=== PATIENT | male | born 1950 | race Caucasian/White ===

== ENCOUNTER 2016-11-04 19:57 | Emergency (ER) | payer MEDICARE ==
[2016-11-04 20:28] VITALS: RESP 18; TEMP 98.1
--- NOTE | 2016-11-04 21:35 | ED ---
Upper Extremity HPI - General Stated Complaint: Elbow Pain with swelling Time Seen by Provider: 11/04/16 21:09 Source: patient Mode of arrival: ambulatory Limitations: no limitations - History of Present Illness Initial Comments: Patient is a 66-year-old man who presents to be evaluated for left elbow swelling that has developed over the course of this evening since about 6 PM. 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 It has gotten progressively more swollen. He denies having significant pain related to this. He does note a little bit of pressure. He has not had a loss of range of motion. There is no loss of sensation or motor strength to the arm. He denies fever or chills. Complaint: Injury to:: left, elbow -: hour(s) (4) Other Extremity Injury: Elbow: Left Other Injuries: none Handedness: right Place: outdoors Improves With: none Worsens With: none Associated Symptoms: denies other symptoms - Related Data Home Medications Medication Instructions Recorded Confirmed Aspirin [Adult Low Dose Aspirin EC] 81 mg PO QAM 04/18/15 11/04/16 Etodolac [Lodine] 500 mg PO QAM 04/18/15 11/04/16 Folic Acid 1 mg PO QAM 04/18/15 11/04/16 levETIRAcetam [Keppra] 500 mg PO QAM 04/18/15 11/04/16 Venlafaxine HCl [Effexor XR] 75 mg PO QAM 04/28/15 11/04/16 ALPRAZolam [Xanax] 0.25 mg PO HS PRN 11/04/16 11/04/16 Atorvastatin Calcium [Lipitor] 40 mg PO QAM 11/04/16 11/04/16 Clopidogrel [Plavix] 75 mg PO QAM 11/04/16 11/04/16 Ondansetron HCl [Zofran] 8 mg PO DAILY PRN 11/04/16 11/04/16 Allergies Allergy/AdvReac Type Severity Reaction Status Date / Time cephalexin monohydrate Allergy Anaphylaxis Verified 04/28/15 13:34 [From Keflex] Penicillins Allergy Anaphylaxis Verified 04/28/15 13:34 Review of Systems ROS Statement: Those systems with pertinent positive or pertinent negative responses have been documented in the HPI. ROS Other: All systems not noted in ROS Statement are negative. Constitutional: Denies: fever, chills Respiratory: Denies: cough, dyspnea Cardiovascular: Denies: chest pain, palpitations, syncope Gastrointestinal: Denies: abdominal pain, vomiting Musculoskeletal: Reports: as per HPI, joint swelling (Left elbow) Skin: Denies: rash Neurological: Denies: headache, weakness, numbness, paresthesias Past Medical History Past Medical History: CVA/TIA, GERD/Reflux, Hyperlipidemia, Hypertension, Myocardial Infarction (MS), Osteoarthritis (OA), Seizure Disorder Last Myocardial Infarction Date:: 2010 History of Any Multi-Drug Resistant Organisms: None Reported Past Surgical History: Coronary Bypass/CABG, Heart Catheterization, Orthopedic Surgery Additional Past Surgical History / Comment(s): PFO closure 2000, reconstruction face left side, triple bypass 2010, and rt leg almost severed in 2006, triple bypass 2009, suzanne tortor cuff, suzanne knee arthroscopies,lt elbow tendon repair, fem atery replaced [facility]--16 total lt knee replacment. Past Anesthesia/Blood Transfusion Reactions: No Reported Reaction Past Psychological History: No Psychological Hx Reported Smoking Status: Former smoker - Past Family History Father Family Medical History: Pulmonary Embolus Mother Family Medical History: Congestive Heart Failure (CHF), Diabetes Mellitus, Myocardial Infarction (MS) General Exam Limitations: no limitations General appearance: alert, in no apparent distress Head exam: Present: atraumatic, normocephalic Respiratory exam: Present: normal lung sounds bilaterally. Absent: respiratory distress, wheezes, rales, rhonchi, stridor Cardiovascular Exam: Present: regular rate, normal rhythm, normal heart sounds. Absent: systolic murmur, diastolic murmur, rubs, gallop Extremities exam: Present: full ROM, normal capillary refill, other (Patient has swelling at the left olecranon bursa. There is no erythema or warmth. There is a small area of abrasion adjacent to the olecranon, without any evidence of secondary infection.). Absent: tenderness Back exam: Present: normal inspection. Absent: CVA tenderness (R), CVA tenderness (L) Neurological exam: Present: alert. Absent: motor sensory deficit Skin exam: Present: warm, dry, intact, normal color, abrasion (As above). Absent: rash Course Vital Signs 11/04/16 20:26 Temperature 98.1 F Pulse Rate 61 Respiratory 18 Rate Blood Pressure 128/74 O2 Sat by Pulse 95 Oximetry Medical Decision Making - Medical Decision Making Patient is a 66-year-old man who presents with history and physical consistent with left olecranon bursitis. I suspect that it is traumatic as there is a small contusion and abrasion. There is no evidence of infection. The patient has full range of motion and there is really no tenderness. There is no erythema or warmth. I did attempt to aspirate and did not obtain any return other than just a small drop of blood. Compression wrap provided. Patient to follow-up with orthopedic surgery. Discussed return parameters. Disposition Clinical Impression: Olecranon bursitis, left elbow Disposition: HOME SELF-CARE Condition: Good Instructions: Elbow Bursitis (ED) Referrals: Prashanth Alcantar MD [Primary Care Provider] - 1-2 days
[2016-11-04 22:13] VITALS: BP 125/68; PULSE 57
== END 2016-11-04 22:19 | disposition home or self-care (01) ==
LOC: EC 19:57
DX: M70.22 Olecranon bursitis, left elbow (principal); I25.2 Old myocardial infarction; M19.90 Unspecified osteoarthritis, unspecified site; K21.9 Gastro-esophageal reflux disease without esophagitis; I10 Essential (primary) hypertension; E78.5 Hyperlipidemia, unspecified; G40.909 Epilepsy, unspecified, not intractable, without status epilepticus; Z86.73 Personal history of transient ischemic attack (TIA), and cerebral infarction without residual deficits; Z87.891 Personal history of nicotine dependence; Z79.01 Long term (current) use of anticoagulants; Z79.82 Long term (current) use of aspirin; Z79.899 Other long term (current) drug therapy; Z88.0 Allergy status to penicillin; Z88.1 Allergy status to other antibiotic agents
CPT/HCPCS: 99283

== ENCOUNTER 2018-02-26 06:18 | Day surgery (SDC) | payer MEDICARE ==
[2018-02-21 13:20] VITALS: BMI 25.8
[2018-02-26] MEDS ORDERED: ALPRAZolam 0.5 MG TAB PO PRN (06:21)
[2018-02-26] MEDS ORDERED: ALPRAZolam 0.25 MG TAB PO PRN ×2 (06:21→08:21)
[2018-02-26] MEDS ORDERED: NITROGLYCERIN SL TABS 0.4 MG TAB SUBLINGUAL PRN (06:21)
[2018-02-26] MEDS ORDERED: ATORVASTATIN 80 MG TAB PO STA (06:21)
[2018-02-26] MEDS ORDERED: ASPIRIN 325 MG TAB PO STA (06:21)
[2018-02-26] MEDS ORDERED: SODIUM CHLORIDE 0.9% 1,000 ML in EMPTY BAG 1 BAG IV ONE (06:21)
[2018-02-26] MEDS ORDERED: SODIUM CHLORIDE 0.9% 1,000 ML IV ONE (07:10)
[2018-02-26 07:19] VITALS: RESP 16; TEMP 98
[2018-02-26] MEDS ORDERED: MIDAZOLAM 2 MG/2 ML VIAL ONE (07:21)
[2018-02-26] MEDS ORDERED: LIDOCAINE 1% INJ 10MG/ML (20 ML MDV) ONE (07:21)
[2018-02-26] MEDS ORDERED: fentaNYL (PF) 50 MCG/ML 2 ML AMP ONE (07:21)
[2018-02-26] MEDS ORDERED: fentaNYL (PF) 50 MCG/ML 2 ML AMP IVP ONE (07:48)
[2018-02-26] MEDS ORDERED: LIDOCAINE 1% (PF) 10MG/ML VIAL SQ ONE (07:53)
[2018-02-26] MEDS ORDERED: IOPAMIDOL-370 125ML BTL INJ ONE (08:07)
[2018-02-26] MEDS ORDERED: IOPAMIDOL-370 50ML BTL INJ ONE (08:07)
[2018-02-26] MEDS ORDERED: RX INFO: IV CONTRAST WAS GIVEN 1 EACH MISC MISCELLANE PRN (08:20)
[2018-02-26] MEDS ORDERED: ONDANSETRON 4 MG TAB PO PRN (08:21)
[2018-02-26] MEDS ORDERED: SODIUM CHLORIDE 0.9% 1,000 ML IV SCH (08:30)
[2018-02-26] MEDS ORDERED: ATORVASTATIN 40 MG TAB PO SCH (09:00)
[2018-02-26] MEDS ORDERED: VENLAFAXINE HCL ER 75 MG CAP PO SCH (09:00)
[2018-02-26] MEDS ORDERED: ETODOLAC 500 MG PO SCH (09:00)
[2018-02-26] MEDS ORDERED: levETIRAcetam 500 MG TAB PO SCH (09:00)
[2018-02-26] MEDS ORDERED: CLOPIDOGREL 75 MG TAB PO SCH (09:00)
[2018-02-26] MEDS ORDERED: FOLIC ACID 1 MG TAB PO SCH (09:00)
[2018-02-26] MEDS ORDERED: NON-FORMULARY DRUG (Aspirin [Adult Low Dose Aspirin Ec] 81 MG) PO SCH (09:00)
--- NOTE | 2018-02-26 09:49 | CC ---
CARDIAC CATHETERIZATION REPORT Mr. Mcgrath is a 67-year-old male with known history of coronary artery disease, status post coronary artery bypass grafting 2009, history of hyperlipidemia and prior history of ASD closure, who had some episode of chest discomfort. He subsequently underwent a myocardial perfusion imaging that revealed a inferolateral wall defect. In view of that, recommendation was made regarding cardiac catheterization. The procedure as well as the risks and complications were discussed with the patient who is in full understanding and agreement. 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 Using Xylocaine anesthesia in the Seldinger technique, a a 6-Gu[place] sheath was introduced in the right femoral artery. Selective right and left angiography performed using care 6- [place]alan 4 bend right and left Anastasia catheters. Multiple views of coronary artery including hemiaxial views were obtained. Following that 6-[place] tight pigtail catheter was introduced in the left ventricle and a 30-degree LOPEZ view of the left ventricle was obtained. Following the catheter and sheaths were removed. Hemostasis was obtained with deployment of an Angio-Seal. There was no immediate complication. Patient is returned to his room in stable condition. FINDINGS: LEFT MAIN: This is a large-sized vessel bifurcating in the left circumflex, left anterior descending artery. Left main coronary artery has a 60% to 70% stenosis distally. LEFT ANTERIOR DESCENDING ARTERY: This vessel is totally occluded proximally with no antegrade flow. LEFT CIRCUMFLEX: This is a nondominant vessel giving rise to 2 obtuse marginal branches. The left circumflex has retrograde filling into the saphenous vein graft that is feeding the first obtuse marginal branch. RIGHT CORONARY ARTERY: This is a large dominant vessel bifurcating into PDA and posterolateral segment and branches. The right coronary artery in mid segment has 20% to 30% plaque. The rest of the vessel has no high-grade stenosis. SAPHENOUS VEIN GRAFT TO THE OBTUSE MARGINAL BRANCH: The proximal distal anastomotic sites are patent. The body of the graft proximally has 20% plaque. The rest of the vessel has no high-grade stenosis. SAPHENOUS VEIN GRAFT TO THE DIAGONAL BRANCH: The proximal distal anastomotic sites are patent. The flow into the diagonal branch is brisk. There is no evidence of high- grade stenosis. PERSAUD TO THE LAD: The distal anastomotic site is patent. The flow into the LAD is brisk. LEFT VENTRICULOGRAM: Left ventriculogram is performed in 30-degree LOPEZ view and revealed normal left ventricular size and systolic function. Ejection fraction is 60%. HEMODYNAMICS: There was no gradient across the aortic valve. The left ventricular end- diastolic pressure was 16 to 18 mmHg. CONCLUSION: 1. Severe left main disease and total occlusion of the left anterior descending artery and significant disease in the left circumflex. 2. Mild disease in the right coronary artery. 3. Patent PERSAUD to left anterior descending artery. 4. Patent saphenous vein graft to the obtuse marginal branch and diagonal branch. 5. Normal left ventricular size and systolic function. 6. atrial septal defect closure device. RECOMMENDATION: In view of finding anatomy, recommend to continue medical therapy with aggressive coronary risk modifications that have been initiated. Those findings and recommendation were discussed with the patient and his family who are in full understanding and agreement. Duration of procedure is 19 minutes. MMODL / IJN: [id number] / MTDD
[2018-02-26 13:56] VITALS: BP 110/72; PULSE 56
== END 2018-02-26 13:57 | disposition home or self-care (01) ==
LOC: CATHCVL 06:18
PROVIDERS: ATTEND Internal Medicine Interventional Cardiology
DX: I25.10 Atherosclerotic heart disease of native coronary artery without angina pectoris (principal); I25.810 Atherosclerosis of coronary artery bypass graft(s) without angina pectoris; I25.82 Chronic total occlusion of coronary artery; E78.2 Mixed hyperlipidemia; E78.00 Pure hypercholesterolemia, unspecified; Z79.1 Long term (current) use of non-steroidal anti-inflammatories (NSAID); Z79.02 Long term (current) use of antithrombotics/antiplatelets; Z79.82 Long term (current) use of aspirin; Z79.899 Other long term (current) drug therapy; Z88.0 Allergy status to penicillin
CPT/HCPCS: 93459; C1760; C1894; C1769; J3010; J2001; Q9967 ×2

== ENCOUNTER → 2023-03-01 | Outpatient (CLI) | payer MEDICARE ==
--- NOTE | 2023-03-04 09:03 | CT ---
EXAMINATION TYPE: CT wrist LT wo con DATE OF EXAM: 03/01/2023 COMPARISON: None HISTORY: left wrist fx CT DLP: 127.4 mGycm Automated exposure control for dose reduction was used. FINDINGS: There is an impacted fracture distal radius with mild displacement extending toward the articular vazquez face. Carpal bones are intact. Cannot exclude a nondisplaced hairline fracture involving the articular surface of distal ulna. Casti ng material and soft tissue edema noted. Severe first carpometacarpal osteoarthritis. Vascular calcif ications. IMPRESSION: MILDLY DISPLACED IMPACTED FRACTURE DISTAL RADIUS.
== END | disposition home or self-care (01) ==
LOC: RADCTMAIN 18:42
PROVIDERS: ATTEND Orthopaedic Surgery
DX: S52.572A Other intraarticular fracture of lower end of left radius, initial encounter for closed fracture (principal); S52.502A Unspecified fracture of the lower end of left radius, initial encounter for closed fracture

== ENCOUNTER 2023-03-26 19:32 | Observation (INO) | payer MEDICARE ==
--- NOTE | 2023-03-26 20:02 | ED ---
General Adult HPI - General Source: patient, RN notes reviewed, old records reviewed Mode of arrival: ambulatory Limitations: no limitations <Rony Tillman - Last Filed: 03/26/23 21:06> <Wilberto Courtney - Last Filed: 03/26/23 23:20> - General Chief complaint: Shortness of Breath Stated complaint: Chest Pain,Sob Time Seen by Provider: 03/26/23 19:45 - History of Present Illness Initial comments: This is a 72-year-old male who presents to the emergency department complaining of difficulty breathing for about a week. Patient states she's been coughing quite a bit and he thinks is all from sinus drainage. Patient states he went to urgent care today and they told him to take deep breaths and he should be fine. Patient states ever since then he hasn't improved in fact he feels as though is gotten worse. Patient states he has not taken his temperature she doesn't know if he has a fever. Patient states he does have anterior chest pain with coughing. Patient denies any abdominal pain patient denies back pain. Patient states he coughed couple times earlier today and he did cough up some blood. Patient states she does have a history of triple bypass surgery. (Rony Tillman) - Related Data Home Medications Medication Instructions Recorded Confirmed Aspirin [Adult Low Dose Aspirin EC] 81 mg PO DAILY 04/18/15 03/26/23 Folic Acid 1 mg PO DAILY 04/18/15 03/26/23 ALPRAZolam [Xanax] 0.5 mg PO HS PRN 03/26/23 03/26/23 Ezetimibe [Zetia] 10 mg PO DAILY 03/26/23 03/26/23 Levofloxacin [Levaquin] 750 mg PO DAILY 03/26/23 03/26/23 Meloxicam [Mobic] 15 mg PO DAILY 03/26/23 03/26/23 Omeprazole [PriLOSEC] 20 mg PO DAILY 03/26/23 03/26/23 Rosuvastatin [Crestor] 20 mg PO DAILY 03/26/23 03/26/23 metFORMIN HCL [Glucophage] 500 mg PO PC-SUPPER 03/26/23 03/26/23 traMADol HCL 50 mg PO Q6H PRN 03/26/23 03/26/23 Allergies Allergy/AdvReac Type Severity Reaction Status Date / Time cephalexin monohydrate Allergy Anaphylaxis Verified 03/26/23 21:09 [From Keflex] Penicillins Allergy Anaphylaxis Verified 03/26/23 21:09 Review of Systems ROS Other: All systems not noted in ROS Statement are negative. <Rony Tillman - Last Filed: 03/26/23 21:06> ROS Other: All systems not noted in ROS Statement are negative. <Wilberto Courtney - Last Filed: 03/26/23 23:20> ROS Statement: Those systems with pertinent positive or pertinent negative responses have been documented in the HPI. Past Medical History Past Medical History: Coronary Artery Disease (CAD), CVA/TIA, GERD/Reflux, Hyperlipidemia, Myocardial Infarction (ND), Seizure Disorder Additional Past Medical History / Comment(s): LAST SEIZURE-2011 Last Myocardial Infarction Date:: 2010 History of Any Multi-Drug Resistant Organisms: None Reported Past Surgical History: Coronary Bypass/CABG, Heart Catheterization, Orthopedic Surgery Additional Past Surgical History / Comment(s): PFO closure 2000, reconstruction face left side, and rt leg almost severed in 2006, triple bypass 2009, suzanne SHOULDER SURGERY, suzanne knee arthroscopies,lt elbow tendon repair, fem atery replaced [facility] total lt knee replacment. Past Anesthesia/Blood Transfusion Reactions: No Reported Reaction Past Psychological History: Anxiety Smoking Status: Never smoker Past Alcohol Use History: Rare Past Drug Use History: None Reported - Past Family History Father Family Medical History: Pulmonary Embolus Mother Family Medical History: Congestive Heart Failure (CHF), Diabetes Mellitus, Myocardial Infarction (ND) <Rony Tillman - Last Filed: 03/26/23 21:06> General Exam Limitations: no limitations <Rony Tillman - Last Filed: 03/26/23 21:06> - General Exam Comments Initial Comments: GENERAL: Patient is well-developed and well-nourished. Patient is nontoxic and well- hydrated and is in mild distress. ENT: Neck is soft and supple. No significant lymphadenopathy is noted. Oropharynx is clear. Moist mucous membranes. Neck has full range of motion without eliciting any pain. EYES: The sclera were anicteric and conjunctiva were pink and moist. Extraocular movements were intact and pupils were equal round and reactive to light. Eyelids were unremarkable. PULMONARY: Unlabored respirations. Good breath sounds bilaterally. No audible rales rhonchi or wheezing was noted. CARDIOVASCULAR: There is a regular rate and rhythm without any murmurs gallops or rubs. ABDOMEN: Soft and nontender with normal bowel sounds. SKIN: Skin is clear with no lesions or rashes and otherwise unremarkable. NEUROLOGIC: Patient is alert and oriented x3. Cranial nerves II through XII are grossly intact. Motor and sensory are also intact. Normal speech, volume and content. Symmetrical smile. MUSCULOSKELETAL: Normal extremities with adequate strength and full range of motion. LYMPHATICS: No significant lymphadenopathy is noted PSYCHIATRIC: Normal psychiatric evaluation. Normal interpersonal interactions appears functionally intact in deals appropriately with others. No signs of depression. No signs of anxiety. (Rony Tillman) Course Vital Signs 03/26/23 03/26/23 03/26/23 19:34 21:14 21:16 Temperature 97.8 F Pulse Rate 83 56 L Respiratory 30 H 16 16 Rate Blood Pressure 151/82 135/88 O2 Sat by Pulse 99 97 Oximetry 03/26/23 23:15 Temperature Pulse Rate 62 Respiratory 16 Rate Blood Pressure 117/74 O2 Sat by Pulse 97 Oximetry Medical Decision Making - Lab Data Result diagrams: 03/26/23 20:04 03/26/23 20:04 <Rony Tillman - Last Filed: 03/26/23 21:06> - Lab Data Result diagrams: 03/26/23 20:04 03/26/23 20:04 <Wilberto Courtney - Last Filed: 03/26/23 23:20> - Medical Decision Making EKG is interpreted by myself. EKG shows sinus rhythm at 70 bpm HI interval 260 QRS is 97 QT interval 394 QTC is 414. Patient's EKG shows no ST segment elevation or depression. Was pt. sent in by a medical professional or institution (, PA, [employer], urgent care, hospital, or [place] [facility] facility...) When possible be specific @ -Patient was seen in urgent care earlier Did you speak to anyone other than the patient for history (EMS, parent, family, police, friend...)? What history was obtained from this source @ -[No] Did you review nursing and triage notes (agree or disagree)? Why? @ -[I reviewed and agree with nursing and triage notes] Were old charts reviewed (outside hosp., previous admission, EMS record, old EKG, old radiological studies, urgent care reports/EKG's, [place] [facility] facility records)? Report findings @ -I reviewed prior charts of prior laboratories on this patient Differential Diagnosis (chest pain, altered mental status, abdominal pain women, abdominal pain men, vaginal bleeding, weakness, fever, dyspnea, syncope, headache, dizziness, GI bleed, back pain, seizure, CVA, palpatations, mental health, musculoskeletal)? @ -Differential Dyspnea: Coronary syndrome, arrhythmia, tamponade, asthma, COPD, pulmonary embolism, pneumonia, pneumothorax, pulmonary effusion, anaphylaxis, diabetic ketoacidosis, flailed chest, pulmonary contusion, diaphragmatic rupture, anemia, neuromuscular, this is not meant to be an all-inclusive list. EKG interpreted by me (3pts min.). @ -[As above] X-rays interpreted by me (1pt min.). @ -Chest x-ray Shows no acute abnormality CT interpreted by me (1pt min.). @ -[None done] U/S interpreted by me (1pt. min.). @ -[None done] What testing was considered but not performed or refused? (CT, X-rays, U/S, labs)? Why? @ -[None] What meds were considered but not given or refused? Why? @ -[None] Did you discuss the management of the patient with other professionals (professionals i.e. , PA, [employer], lab, RT, psych nurse, social work administrator, management trainer, teacher, multisensor intelligence officer, case consultant)? Give summary @ -[No] Was smoking cessation discussed for >3mins.? @ -[No] Was critical care preformed (if so, how long)? @ -[No] Were there social determinants of health that impacted care today? How? (Homelessness, low income, unemployed, alcoholism, drug addiction, transportation, low edu. Level, literacy, decrease access to med. care, halfway, rehab)? @ -[No] Was there de-escalation of care discussed even if they declined (Discuss DNR or withdrawal of care, Hospice)? DNR status @ -[No] What co-morbidities impacted this encounter? (DM, HTN, Smoking, COPD, CAD, Cancer, CVA, ARF, Chemo, Hep., AIDS, mental health diagnosis, sleep apnea, morbid obesity)? @ -[None] Was patient admitted / discharged? Hospital course, mention meds given and route, prescriptions, significant lab abnormalities, going to OR and other pertinent info. @ -Patient is awaiting the rest of lab work. At this point time Dr. Courtney will be taking over the care of this patient at 9 PM (Rony Tillman) - Lab Data Lab Results 03/26/23 03/26/23 03/26/23 Range/Units 20:04 20:04 20:04 WBC 4.2 (3.8-10.6) k/uL RBC 4.79 (4.30-5.90) m/uL Hgb 14.4 (13.0-17.5) gm/dL Hct 41.8 (39.0-53.0) % MCV 87.3 (80.0-100.0) fL MCH 30.1 (25.0-35.0) pg MCHC 34.5 (31.0-37.0) g/dL RDW 12.6 (11.5-15.5) % Plt Count 201 (150-450) k/uL MPV 7.4 Neutrophils % 43 % Lymphocytes % 39 % Monocytes % 9 % Eosinophils % 4 % Basophils % 1 % Neutrophils # 1.8 (1.3-7.7) k/uL Lymphocytes # 1.6 (1.0-4.8) k/uL Monocytes # 0.4 (0-1.0) k/uL Eosinophils # 0.2 (0-0.7) k/uL Basophils # 0.0 (0-0.2) k/uL PT 11.3 (10.0-12.5) sec INR 1.0 (<1.2) APTT 24.8 (22.0-30.0) sec D-Dimer 0.46 (<0.60) mg/L FEU Sodium 137 (137-145) mmol/L Potassium 3.8 (3.5-5.1) mmol/L Chloride 103 (98-107) mmol/L Carbon Dioxide 19 L (22-30) mmol/L Anion Gap 15 mmol/L BUN 18 (9-20) mg/dL Creatinine 0.86 (0.66-1.25) mg/dL Est GFR (CKD-EPI)AfAm >90 (>60 ml/min/1.73 sqM) Est GFR (CKD-EPI)NonAf 88 (>60 ml/min/1.73 sqM) Glucose 143 H (74-99) mg/dL Lactic Ac Sepsis Rflx Plasma Lactic Acid Shen (0.7-2.0) mmol/L Calcium 9.3 (8.4-10.2) mg/dL Total Bilirubin 0.5 (0.2-1.3) mg/dL AST 29 (17-59) U/L ALT 25 (4-49) U/L Alkaline Phosphatase 103 (38-126) U/L Troponin I (0.000-0.034) ng/mL Total Protein 6.7 (6.3-8.2) g/dL Albumin 4.1 (3.5-5.0) g/dL Influenza Type A (PCR) (Not Detectd) Influenza Type B (PCR) (Not Detectd) RSV (PCR) (Not Detectd) SARS-CoV-2 (PCR) (Not Detectd) 03/26/23 03/26/23 03/26/23 Range/Units 20:04 20:04 21:13 WBC (3.8-10.6) k/uL RBC (4.30-5.90) m/uL Hgb (13.0-17.5) gm/dL Hct (39.0-53.0) % MCV (80.0-100.0) fL MCH (25.0-35.0) pg MCHC (31.0-37.0) g/dL RDW (11.5-15.5) % Plt Count (150-450) k/uL MPV Neutrophils % % Lymphocytes % % Monocytes % % Eosinophils % % Basophils % % Neutrophils # (1.3-7.7) k/uL Lymphocytes # (1.0-4.8) k/uL Monocytes # (0-1.0) k/uL Eosinophils # (0-0.7) k/uL Basophils # (0-0.2) k/uL PT (10.0-12.5) sec INR (<1.2) APTT (22.0-30.0) sec D-Dimer (<0.60) mg/L FEU Sodium (137-145) mmol/L Potassium (3.5-5.1) mmol/L Chloride (98-107) mmol/L Carbon Dioxide (22-30) mmol/L Anion Gap mmol/L BUN (9-20) mg/dL Creatinine (0.66-1.25) mg/dL Est GFR (CKD-EPI)AfAm (>60 ml/min/1.73 sqM) Est GFR (CKD-EPI)NonAf (>60 ml/min/1.73 sqM) Glucose (74-99) mg/dL Lactic Ac Sepsis Rflx Y Plasma Lactic Acid Shen 2.5 H* (0.7-2.0) mmol/L Calcium (8.4-10.2) mg/dL Total Bilirubin (0.2-1.3) mg/dL AST (17-59) U/L ALT (4-49) U/L Alkaline Phosphatase (38-126) U/L Troponin I <0.012 (0.000-0.034) ng/mL Total Protein (6.3-8.2) g/dL Albumin (3.5-5.0) g/dL Influenza Type A (PCR) (Not Detectd) Influenza Type B (PCR) (Not Detectd) RSV (PCR) (Not Detectd) SARS-CoV-2 (PCR) (Not Detectd) 03/26/23 Range/Units 21:14 WBC (3.8-10.6) k/uL RBC (4.30-5.90) m/uL Hgb (13.0-17.5) gm/dL Hct (39.0-53.0) % MCV (80.0-100.0) fL MCH (25.0-35.0) pg MCHC (31.0-37.0) g/dL RDW (11.5-15.5) % Plt Count (150-450) k/uL MPV Neutrophils % % Lymphocytes % % Monocytes % % Eosinophils % % Basophils % % Neutrophils # (1.3-7.7) k/uL Lymphocytes # (1.0-4.8) k/uL Monocytes # (0-1.0) k/uL Eosinophils # (0-0.7) k/uL Basophils # (0-0.2) k/uL PT (10.0-12.5) sec INR (<1.2) APTT (22.0-30.0) sec D-Dimer (<0.60) mg/L FEU Sodium (137-145) mmol/L Potassium (3.5-5.1) mmol/L Chloride (98-107) mmol/L Carbon Dioxide (22-30) mmol/L Anion Gap mmol/L BUN (9-20) mg/dL Creatinine (0.66-1.25) mg/dL Est GFR (CKD-EPI)AfAm (>60 ml/min/1.73 sqM) Est GFR (CKD-EPI)NonAf (>60 ml/min/1.73 sqM) Glucose (74-99) mg/dL Lactic Ac Sepsis Rflx Plasma Lactic Acid Shen (0.7-2.0) mmol/L Calcium (8.4-10.2) mg/dL Total Bilirubin (0.2-1.3) mg/dL AST (17-59) U/L ALT (4-49) U/L Alkaline Phosphatase (38-126) U/L Troponin I (0.000-0.034) ng/mL Total Protein (6.3-8.2) g/dL Albumin (3.5-5.0) g/dL Influenza Type A (PCR) Not Detected (Not Detectd) Influenza Type B (PCR) Not Detected (Not Detectd) RSV (PCR) Not Detected (Not Detectd) SARS-CoV-2 (PCR) Not Detected (Not Detectd) Disposition <Rony Tillman - Last Filed: 03/26/23 21:06> Is patient prescribed a controlled substance at d/c from ED?: No Time of Disposition: 23:20 <Wilberto Courtney - Last Filed: 03/26/23 23:20> Clinical Impression: Chest pain Disposition: ADMITTED IP TO THIS HOSP Condition: Stable Referrals: Tenzin Torres MD [Primary Care Provider] - 1-2 days
[2023-03-26 20:26] LABS: Basophils % (A) 1 %; Eosinophils # (A) 0.2 k/uL (0-0.7); Eosinophils % (A) 4 %; HCT 41.8 % (39.0-53.0); HGB 14.4 gm/dL (13.0-17.5); Lymphocytes # (A) 1.6 k/uL (1.0-4.8); Lymphocytes % (A) 39 %; MCH 30.1 pg (25.0-35.0); MCHC 34.5 g/dL (31.0-37.0); MCV 87.3 fL (80.0-100.0); Mean Platelet Volume 7.4; Monocytes # (A) 0.4 k/uL (0-1.0); Monocytes % (A) 9 %; Neutrophils # (A) 1.8 k/uL (1.3-7.7); Neutrophils % (A) 43 %; Platelet Count 201 k/uL (150-450); RBC 4.79 m/uL (4.30-5.90); RDW 12.6 % (11.5-15.5); WBC 4.2 k/uL (3.8-10.6)
[2023-03-26 20:42] LABS: Partial Thromboplastin Time 24.8 sec (22.0-30.0); Prothrombin Time 11.3 sec (10.0-12.5)
--- NOTE | 2023-03-26 20:46 | XR ---
EXAMINATION TYPE: XR chest 2V DATE OF EXAM: 03/26/2023 COMPARISON: 01/15/2013 INDICATION: Difficulty breathing, coughing up blood TECHNIQUE: Frontal and lateral views of the chest are obtained. FINDINGS: The heart size is normal. Sternotomy wires are in the midline. The pulmonary vasculature is normal. The lungs are clear. IMPRESSION: 1. No acute pulmonary process.
[2023-03-26 20:55] LABS: ALT 25 U/L (4-49); AST 29 U/L (17-59); African American GFR (CKD) >90 (>60 ml/min/1.73 sqM); Albumin 4.1 g/dL (3.5-5.0); Alkaline Phosphatase 103 U/L (38-126); Anion Gap 15 mmol/L; Blood Urea Nitrogen 18 mg/dL (9-20); Calcium 9.3 mg/dL (8.4-10.2); Carbon Dioxide 19 mmol/L (22-30); Chloride 103 mmol/L (98-107); Glucose 143 mg/dL (74-99); Non-African American GFR(CKD) 88 (>60 ml/min/1.73 sqM); Potassium 3.8 mmol/L (3.5-5.1); Sodium 137 mmol/L (137-145); Total Bilirubin 0.5 mg/dL (0.2-1.3); Total Protein 6.7 g/dL (6.3-8.2)
[2023-03-26] MEDS ORDERED: SODIUM CHLORIDE 0.9% 500 ML 500 ML IV ONE (23:05)
[2023-03-26] MEDS ORDERED: NALOXONE 0.4 MG/ML 1 ML VIAL IV PRN (23:17)
[2023-03-26] MEDS ORDERED: ACETAMINOPHEN TAB 325 MG TAB PO PRN (23:17)
[2023-03-26] MEDS ORDERED: ASPIRIN 325 MG TAB PO STA (23:17)
[2023-03-27 00:58] VITALS: RESP 18
[2023-03-27] MEDS ORDERED: IPRATROPIUM-ALBUTEROL 3 ML NEB INHALATION PRN (04:18)
--- NOTE | 2023-03-27 04:20 | P.HPIM ---
History of Present Illness H&P Date: 03/26/23 The patient is a 72-year-old male with a PMH of CAD status post CABG, hypertension, type II DM, and hyperlipidemia who presents to the emergency room with complaints of cough and chest discomfort. He reports that he has been experiencing a persistent cough over the past 4 days, unproductive, along with sinus congestion and drainage. He he was seen at an urgent care clinic yesterday and was prescribed inhalers which only worsened his coughing. He reports that since yesterday he has been experiencing left-sided sharp pleuritic chest discomfort, most notably when he coughs. He also reports having coughed up a small amount of bloody tinged sputum earlier today. He denies nausea, vomiting, diaphoresis, or dizziness. Chest x-ray in the emergency room was unremarkable. EKG revealed sinus rhythm and incomplete right bundle branch block at 70 bpm as reviewed by me. Laboratory evaluation revealed lactic acid of 2.5 with a viral respiratory panel unremarkable, troponin less than 0.012, d-dimer 0.46. ED documentation reviewed and case discussed with ED provider. Review of systems: Pertinent positives and negatives as discussed in HPI, a complete review of sy stems was performed and all other systems are negative. Physical examination: Vital signs reviewed General: non toxic, no distress, appears at stated age, normal weight Derm: no unusual rashes/lesions, warm Head: atraumatic, normocephalic, symmetric Eyes: EOMI, no lid lag, anicteric sclera, pupils equal round reactive to light ENT: Nose and ears atraumatic Neck: No cervical lymphadenopathy, trachea midline, supple Mouth: no lip lesion, mucus membranes moist Cardiovascular: S1S2 reg, no murmur, positive dorsalis pedis pulse bilateral, no edema Lungs: CTA bilateral, no rhonchi, no rales, no accessory muscle use Abdominal: soft, nontender to palpation, no guarding Ext: muscle strength 5 out of 5 in all 4 extremities grossly, no gross muscle atrophy, no contractures, Neuro: CN II-XI grossly intact, no gross focal neuro deficits Psych: Alert, oriented, appropriate affect Assessment: Chest pain, likely musculoskeletal in setting of persistent cough, rule out ACS due to significant CAD history Persistent cough, suspect acute bronchitis Lactic acidosis, resolved Chronic conditions: Hypertension, type II DM, hyperlipidemia Imaging: Chest x-ray in the emergency room was unremarkable. EKG revealed sinus rhythm and incomplete right bundle branch block at 70 bpm as reviewed by me. Data Review: Laboratory evaluation revealed lactic acid of 2.5 with a viral respiratory panel unremarkable, troponin less than 0.012, d-dimer 0.46. Plan: Cardiology consulted Cardiac monitoring Continue with aspirin and statin Check pro calcitonin levels DuoNeb's with prednisone 40 mg by mouth daily Trend troponin DVT prophylaxis: Lovenox subcu The patient is admitted with an anticipated less than 2 midnight stay for evaluation of chest pain CODE STATUS: Full Code Discussed with: Patient Anticipated discharge place: Home Past Medical History Past Medical History: Coronary Artery Disease (CAD), CVA/TIA, GERD/Reflux, Hyperlipidemia, Myocardial Infarction (ME), Seizure Disorder Additional Past Medical History / Comment(s): LAST SEIZURE-2011 Last Myocardial Infarction Date:: 2010 History of Any Multi-Drug Resistant Organisms: None Reported Past Surgical History: Coronary Bypass/CABG, Heart Catheterization, Orthopedic Surgery Additional Past Surgical History / Comment(s): PFO closure 2000, reconstruction face left side, and rt leg almost severed in 2006, triple bypass 2009, suzanne SHOULDER SURGERY, suzanne knee arthroscopies,lt elbow tendon repair, fem atery replaced 2005 [facility] total lt knee replacment. Past Anesthesia/Blood Transfusion Reactions: No Reported Reaction Past Psychological History: Anxiety Smoking Status: Never smoker Past Alcohol Use History: Rare Past Drug Use History: None Reported - Past Family History Father Family Medical History: Pulmonary Embolus Mother Family Medical History: Congestive Heart Failure (CHF), Diabetes Mellitus, Myocardial Infarction (ME) Medications and Allergies Home Medications Medication Instructions Recorded Confirmed Type Aspirin [Adult Low Dose Aspirin EC] 81 mg PO DAILY 04/18/15 03/26/23 History Folic Acid 1 mg PO DAILY 04/18/15 03/26/23 History ALPRAZolam [Xanax] 0.5 mg PO HS PRN 03/26/23 03/26/23 History Ezetimibe [Zetia] 10 mg PO DAILY 03/26/23 03/26/23 History Levofloxacin [Levaquin] 750 mg PO DAILY 03/26/23 03/26/23 History Meloxicam [Mobic] 15 mg PO DAILY 03/26/23 03/26/23 History Omeprazole [PriLOSEC] 20 mg PO DAILY 03/26/23 03/26/23 History Rosuvastatin [Crestor] 20 mg PO DAILY 03/26/23 03/26/23 History metFORMIN HCL [Glucophage] 500 mg PO PC-SUPPER 03/26/23 03/26/23 History traMADol HCL 50 mg PO Q6H PRN 03/26/23 03/26/23 History Allergies Allergy/AdvReac Type Severity Reaction Status Date / Time cephalexin monohydrate Allergy Anaphylaxis Verified 03/26/23 21:09 [From Keflex] Penicillins Allergy Anaphylaxis Verified 03/26/23 21:09 Physical Exam Vitals: Vital Signs Temp Pulse Resp BP Pulse Ox 03/27/23 00:38 63 18 125/84 97 03/26/23 23:15 62 16 117/74 97 03/26/23 21:16 16 03/26/23 21:14 56 L 16 135/88 97 03/26/23 19:34 97.8 F 83 30 H 151/82 99 Intake and Output 03/26/23 03/26/23 03/27/23 14:59 22:59 06:59 Other: Weight 73.936 kg Results CBC & Chem 7: 03/26/23 20:04 03/26/23 20:04 Labs: Abnormal Lab Results - Last 24 Hours (Table) 03/26/23 03/26/23 Range/Units 20:04 20:04 Carbon Dioxide 19 L (22-30) mmol/L Glucose 143 H (74-99) mg/dL Plasma Lactic Acid Shen 2.5 H* (0.7-2.0) mmol/L
[2023-03-27] MEDS ORDERED: ATORVASTATIN 80 MG TAB PO ONE (04:30)
[2023-03-27] MEDS ORDERED: predniSONE 20 MG TAB PO ONE (04:30)
--- NOTE | 2023-03-27 07:10 | CONS ---
CONSULTATION This is a 72-year-old gentleman with a known history of CAD, prior bypass surgery in 2010 and a cardiac cath that revealed moderate disease in 2018, was advised medical therapy. He has hypertension, type 2 diabetes, hyperlipidemia. He is a very active person and has been doing some physical work yesterday. He then started having some feeling of cough that seemed to get worse. He had some sinus congestion. Has been coughing almost incessantly for the last couple of days. After a heavy bout of coughing, he felt very painful area in the left lateral aspect of the chest. There is actually some tenderness over the left lateral rib. He came in with this pain, which was quite severe and came on after a bout of heavy coughing. Pain seems musculoskeletal. It is reproducible with some tenderness over the ribs. His troponins are normal. EKG revealed sinus mechanism, incomplete right bundle, no acute changes. He is resting comfortably without symptoms. PAST MEDICAL HISTORY: CAD with prior bypass surgery. Cardiac cath in 2018 revealed moderate disease with a patent PERSAUD and was advised medical therapy and since then he has done well. About 3 months ago, he had a stress test according to the patient and echo, which were normal. He had a vein graft to the obtuse marginal and diagonal that was patent and also PERSAUD that was patent. His grayling RCA was dominant, had no more than 30% narrowing. PHYSICAL EXAMINATION: VITAL SIGNS: Blood pressure is 118/70, pulse rate is 60. HEENT: Unremarkable. Fundus was not examined by me. NECK: Supple. No JVD. I do not hear a carotid bruit. There is no thyromegaly. HEART: Reveals S1, S2 heard normally. No significant rub, murmur, or gallop. LUNGS: Clear. ABDOMEN: Soft, nontender. LOWER EXTREMITIES: Reveal normal pulses. No edema. CENTRAL NERVOUS SYSTEM: Normal. IMPRESSION: 1. Atypical musculoskeletal chest pain, left lateral chest secondary to bout of coughing. 2. Probable bronchitis. 3. Stable coronary artery disease with prior bypass surgery. 4. Type 2 diabetes. 5. Hypertension. RECOMMENDATIONS: I am recommending that his bronchitis and cough issues should be addressed by his admitting doctor. From a cardiac standpoint, he can be discharged. I will place him on a diabetic diet, increased activity, and discharged and follow up with Dr. Perez as per his scheduled appointment. Advised to see PCP regarding his bronchitis as well if it does not improve. MMRADHAL / IJN: [id number] /
[2023-03-27] MEDS ORDERED: IPRATROPIUM-ALBUTEROL 3 ML NEB INHALATION SCH (08:00)
[2023-03-27 08:55] VITALS: BP 113/76; PULSE 81; TEMP 97.6
[2023-03-27] MEDS ORDERED: predniSONE 20 MG TAB PO SCH (09:00)
[2023-03-27] MEDS ORDERED: ASPIRIN 81 MG PO SCH (09:00)
[2023-03-27] MEDS ORDERED: ENOXAPARIN 40 MG/0.4 ML SYRINGE SQ SCH (09:00)
--- NOTE | 2023-03-27 11:29 | P.DS ---
Providers Date of admission: 03/26/23 23:17 Expected date of discharge: 03/27/23 Attending physician: Anni Yang MD Consults: 03/27/23 04:11 Consult Physician Urgent Consulting Provider: Robin Clark Consult Reason/Comments: chest pain Do you want consulting provider notified?: Yes Primary care physician: Tenzin Torres MD Hospital Course: The patient is a 72-year-old male with a PMH of CAD status post CABG, hypertension, type II DM, and hyperlipidemia who presents to the emergency room with complaints of cough and chest discomfort. He reports that he has been experiencing a persistent cough over the past 4 days, unproductive, along with sinus congestion and drainage. He he was seen at an urgent care clinic yesterday and was prescribed inhalers which only worsened his coughing. He reports that since yesterday he has been experiencing left-sided sharp pleuritic chest discomfort, most notably when he coughs. He also reports having coughed up a small amount of bloody tinged sputum earlier today. He denies nausea, vomiting, diaphoresis, or dizziness. Chest x-ray in the emergency room was unremarkable. EKG revealed sinus rhythm and incomplete right bundle branch block at 70 bpm. Laboratory evaluation revealed lactic acid of 2.5 with a viral respiratory panel unremarkable, troponin less than 0.012, d-dimer 0.46. Troponins trended, ACS ruled out. Cardiology consulted. Discussed with Dr. Tyler, appears MSK in nature, cleared the patient for discharge. 1/3 Patient was seen and examined. No complaints. Plans for discharge home on Immaculata and Tessalon PRN. Advised resume Levaquin. Prednisone for 4 more days. Pertinent studies include EKG, CXR. General: non toxic, no distress, appears at stated age, normal weight Derm: no unusual rashes/lesions, warm Head: atraumatic, normocephalic, symmetric Eyes: EOMI, no lid lag, anicteric sclera ENT: Nose and ears atraumatic Neck: No cervical lymphadenopathy, trachea midline, supple Cardiovascular: S1S2 reg, no murmur Lungs: CTA bilateral, no rhonchi, no rales, no accessory muscle use Ext: muscle strength 5 out of 5 in all 4 extremities grossly, no gross muscle atrophy, no contractures, Neuro: no gross focal neuro deficits Psych: Alert, oriented, appropriate affect Discharge Diagnosis: Chest pain, likely musculoskeletal in setting of persistent cough, rule out ACS due to significant CAD history Persistent cough, suspect acute bronchitis Lactic acidosis, resolved Chronic conditions: Hypertension, type II DM, hyperlipidemia This complex discharge took 35 minutes to complete. Patient Condition at Discharge: Stable Plan - Discharge Summary New Discharge Prescriptions: New HYDROcodone/APAP 5-325MG [Immaculata 5-325] 1 tab PO Q6HR PRN 3 Days #12 tab PRN Reason: Severe Breakthrough Pain predniSONE [Deltasone] 40 mg PO DAILY #8 tab Benzonatate [Tessalon Perles] 100 mg PO TID PRN #30 capsule PRN Reason: Cough Continue Folic Acid 1 mg PO DAILY Aspirin [Adult Low Dose Aspirin EC] 81 mg PO DAILY traMADol HCL 50 mg PO Q6H PRN PRN Reason: Pain Omeprazole [PriLOSEC] 20 mg PO DAILY metFORMIN HCL [Glucophage] 500 mg PO PC-SUPPER ALPRAZolam [Xanax] 0.5 mg PO HS PRN PRN Reason: Insomnia/Anxiety Rosuvastatin [Crestor] 20 mg PO DAILY Ezetimibe [Zetia] 10 mg PO DAILY Meloxicam [Mobic] 15 mg PO DAILY Levofloxacin [Levaquin] 750 mg PO DAILY Discharge Medication List Aspirin [Adult Low Dose Aspirin EC] 81 mg PO DAILY 04/18/15 [History] Folic Acid 1 mg PO DAILY 04/18/15 [History] ALPRAZolam [Xanax] 0.5 mg PO HS PRN 03/26/23 [History] Ezetimibe [Zetia] 10 mg PO DAILY 03/26/23 [History] Levofloxacin [Levaquin] 750 mg PO DAILY 03/26/23 [History] Meloxicam [Mobic] 15 mg PO DAILY 03/26/23 [History] Omeprazole [PriLOSEC] 20 mg PO DAILY 03/26/23 [History] Rosuvastatin [Crestor] 20 mg PO DAILY 03/26/23 [History] metFORMIN HCL [Glucophage] 500 mg PO PC-SUPPER 03/26/23 [History] traMADol HCL 50 mg PO Q6H PRN 03/26/23 [History] Benzonatate [Tessalon Perles] 100 mg PO TID PRN #30 capsule 03/27/23 [Rx] HYDROcodone/APAP 5-325MG [Immaculata 5-325] 1 tab PO Q6HR PRN 3 Days #12 tab 03/27/23 [Rx] predniSONE [Deltasone] 40 mg PO DAILY #8 tab 03/27/23 [Rx] Follow up Appointment(s)/Referral(s): Tenzin Torres MD [Primary Care Provider] - 1-2 days Patient Instructions/Handouts: Chest Pain (DC) Discharge Disposition: HOME SELF-CARE
--- NOTE | 2023-03-27 12:01 | CA ---
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 Operator Earnestine Clifford, CHEL Procedure CPT: Indications: CP, SOB Cardiac Hx: CABG IN 2009, ASD Closure Technical Quality: Good Contrast 1: Total Dose (mL): Contrast 2: Total Dose (mL): MEASUREMENTS (Male / Female) Normal Values 2D ECHO LV Diastolic Diameter PLAX 4.5 cm 4.2 - 5.9 / 3.9 - 5.3 cm LV Systolic Diameter PLAX 3.3 cm IVS Diastolic Thickness 1.3 cm 0.6 - 1.0 / 0.6 - 0.9 cm LVPW Diastolic Thickness 1.2 cm 0.6 - 1.0 / 0.6 - 0.9 cm LV Relative Wall Thickness 0.6 RV Internal Dim ED PLAX 3.0 cm LA Systolic Diameter LX 3.9 cm 3.0 - 4.0 / 2.7 - 3.8 cm LV Diastolic Volume MOD 4C 108.4 cm??? LV Systolic Volume MOD 4C 36.9 cm??? LV Ejection Fraction MOD 4C 66.0 % LV Cardiac Index MOD 4C 2118.1 cm???/min???m??? LV Diastolic Length 4C 8.1 cm LV Systolic Length 4C 6.5 cm LV Diastolic Volume MOD 2C 83.3 cm??? LV Systolic Volume MOD 2C 26.4 cm??? LV Ejection Fraction MOD 2C 68.3 % LV Cardiac Index MOD 2C 1682.2 cm???/min???m??? LV Diastolic Length 2C 7.0 cm LV Systolic Length 2C 5.8 cm LA Volume 52.0 cm??? 18 - 58 / 22 - 52 cm??? LA Volume Index 27.5 cm???/m??? 16 - 28 cm???/m??? M-MODE Aortic Root Diameter MM 3.2 cm MV E Point Septal Separation 0.5 cm AV Cusp Separation MM 1.9 cm DOPPLER MV Area PHT 2.8 cm??? Mitral E Point Velocity 89.6 cm/s Mitral A Point Velocity 72.9 cm/s Mitral E to A Ratio 1.2 MV Deceleration Time 272.5 ms MV E' Velocity 7.3 cm/s Mitral E to MV E' Ratio 12.3 TR Peak Velocity 230.5 cm/s TR Peak Gradient 21.2 mmHg Right Ventricular Systolic Press 24.5 mmHg FINDINGS Left Ventricle Left ventricular ejection fraction is estimated at 55-60 %. Left ventricular cavity size normal. Mildly increased septal wall thickness. Right Ventricle Normal right ventricular size. Right ventricular systolic pressure within normal limits. Right Atrium Normal right atrial size. Closure device seen on the atrial septal level without evidence of crossing Left Atrium Mildly increased left atrial area. Mitral Valve Structurally normal mitral valve. Trace mitral regurgitation. Aortic Valve Trileaflet aortic valve. No aortic valve stenosis or regurgitation. Tricuspid Valve Structurally normal tricuspid valve. Mild tricuspid regurgitation. Pulmonic Valve Structurally normal pulmonic valve. Trace pulmonic regurgitation. Pericardium No pericardial effusion. Aorta Normal size aortic root and proximal ascending aorta. CONCLUSIONS Normal LV size and systolic function. Atypical septal motion. ASD closure device noted. Minimal mitral and tricuspid regurgitation no pulmonary hypertension no pericardial effusion Previewed by: Dr. Jordan Tyler MD (Electronically Signed) Final Date: 27 March 2023 12:00
[2023-03-27] MEDS ORDERED: ATORVASTATIN 80 MG TAB PO SCH (21:00)
== END 2023-03-27 09:00 | disposition home or self-care (01) ==
LOC: EC 19:32 → 6NMEDSUR 23:17
PROVIDERS: ADMIT Internal Medicine; ATTEND Internal Medicine
DX: R07.89 Other chest pain (principal); E87.20 Acidosis, unspecified; R06.02 Shortness of breath; R04.2 Hemoptysis; R09.81 Nasal congestion; I25.10 Atherosclerotic heart disease of native coronary artery without angina pectoris; E78.5 Hyperlipidemia, unspecified; I10 Essential (primary) hypertension; E11.9 Type 2 diabetes mellitus without complications; R07.81 Pleurodynia; I45.10 Unspecified right bundle-branch block; G40.909 Epilepsy, unspecified, not intractable, without status epilepticus; I25.2 Old myocardial infarction; K21.9 Gastro-esophageal reflux disease without esophagitis; F41.9 Anxiety disorder, unspecified; Z79.82 Long term (current) use of aspirin; Z79.1 Long term (current) use of non-steroidal anti-inflammatories (NSAID); Z79.84 Long term (current) use of oral hypoglycemic drugs; Z79.2 Long term (current) use of antibiotics; Z79.899 Other long term (current) drug therapy; Z88.0 Allergy status to penicillin; Z88.1 Allergy status to other antibiotic agents; Z11.52 Encounter for screening for COVID-19; Z11.59 Encounter for screening for other viral diseases; Z95.1 Presence of aortocoronary bypass graft; Z87.74 Personal history of (corrected) congenital malformations of heart and circulatory system; Z96.652 Presence of left artificial knee joint; Z98.890 Other specified postprocedural states; Z83.3 Family history of diabetes mellitus; Z82.49 Family history of ischemic heart disease and other diseases of the circulatory system
CPT/HCPCS: 96372; 99285; 36415; 94640; 93306; 85379; 80053; 83605 ×2; 84484 ×2; 85025; 85610; 85730; 84145; 87636; 71046; G0378 ×2; J1650; J7512